=== PATIENT | male | born 1950 | race Caucasian/White ===

== ENCOUNTER 2021-01-18 19:45 | Inpatient (IN) | payer MEDICARE, MEDICAID, SELFPAY ==
[~2021-01-18] VITALS: Ht 160 cm; Wt 68.5 kg
--- NOTE | 2021-01-18 19:50 | NUR ---
PT PUT IN CHAIR A
--- NOTE | 2021-01-18 19:51 | NUR ---
WAITING FOR BED TO BECOME AVAILBALE. PT IS ON A 5150 FOR GD. HOLD PLACED BY LAMAR ROGER
[2021-01-18 19:53] VITALS: BP 143/85
--- NOTE | 2021-01-18 21:02 | NUR ---
PT MOVED TO ER BED 6
--- NOTE | 2021-01-18 21:30 | NUR ---
Dr. Teixeira examining patient.
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
[2021-01-18 22:21] LABS: BASOPHILS # (AUTO) 0.1 K/uL (0.00-0.22); BASOPHILS % (AUTO) 3.9 % (0.0-2.0); EOSINOPHILS # (AUTO) 0.1 K/uL (0-0.4); HEMOGLOBIN 12.7 g/dL (12.0-18.0); LYMPHOCYTES # (AUTO) 0.6 K/uL (2.0-11.5); LYMPHOCYTES % (AUTO) 16.4 % (20.5-51.1); MEAN CORPUSCULAR HEMOGLOBIN 32 pg (27-31); MEAN CORPUSCULAR HGB CONC 34 g/dL (33-37); MEAN CORPUSCULAR VOLUME 95.4 fL (80-94); MONOCYTES # (AUTO) 0.4 K/uL (0.8-1.0); MONOCYTES % (AUTO) 11.9 % (1.7-9.3); NEUTROPHILS # (AUTO) 2.4 K/uL (1.8-7.7); NEUTROPHILS % (AUTO) 64.8 % (42.2-75.2); PLATELET COUNT (AUTO) 115 K/uL (140-450); RED BLOOD CELL COUNT(AUTO) 3.98 MIL/uL (4.20-6.10); RED CELL DISTRIBUTION WIDTH 13.3 % (11.6-13.7); WHITE BLOOD COUNT (AUTO) 3.7 K/uL (4.8-10.8)
[2021-01-18 22:38] LABS: ALBUMIN 3.6 g/dL (3.4-5.0); ANION GAP 11.4 (8-16); ASPARTATE AMINOTRANSFERASE 31 U/L (15-37); CARBON DIOXIDE 27.1 mmol/L (21-32); CHLORIDE 99 mmol/L (98-107); CREATININE 0.9 mg/dL (0.6-1.3); GLUCOSE 90 mg/dL (74-106); POTASSIUM 3.5 mmol/L (3.5-5.1); SODIUM SERUM 134 mmol/L (136-145); TOTAL BILIRUBIN 1.2 mg/dL (0.0-1.0); UREA NITROGEN, BLOOD 15 mg/dL (7-18)
--- NOTE | 2021-01-18 23:00 | NUR ---
SPOKE WITH PATIENT'S SON, ERNIE, AND NOTIFIED HIM THAT PATIENT IS BEING ADMITTED.
[2021-01-19] MEDS ORDERED: NACL 0.9% 1,000 ML IV ONE (01:40)
[2021-01-19 06:30] LABS: APPEARANCE,URINE CLEAR (CLEAR); BILIRUBIN,URINE 1+ (NEGATIVE); BLOOD, URINE NEGATIVE (NEGATIVE); COLOR,URINE YELLOW (YELLOW); LEUKOCYTE ESTERASE ,URINE NEGATIVE (NEGATIVE); NITRITE, URINE NEGATIVE (NEGATIVE); UGLUCOSE NEGATIVE (NEGATIVE)
[2021-01-19 06:42] LABS: BARBITURATE, URINE NEGATIVE ng/ml (NEG <=200); BENZODIAZEPINE, URINE NEGATIVE ng/mL (NEG <=200); CANNABINOID, URINE NEGATIVE ng/mL (NEG <=50); COCAINE, URINE NEGATIVE ng/mL (NEG <=300); OPIATE, URINE NEGATIVE ng/mL (NEG <=2000); PHENCYCLIDINE SCREEN,URINE NEGATIVE ng/mL (NEG <=25)
[2021-01-19 06:54] LABS: RBC,URINE 0-5 /HPF (0-5); WBC,URINE 0-5 /HPF (0-5)
--- NOTE | 2021-01-19 07:10 | NUR ---
Pt report given to DEMARIO MURRIETA. Transfer of care at this time.
--- NOTE | 2021-01-19 07:11 | NUR ---
REceived report from DEMARIO Means, transfered care at this time.
--- NOTE | 2021-01-19 07:23 | NUR ---
Pt A&O X2, calm and cooperative, visible equal rise and fall of chest. VSS, will continue to monitor.
[2021-01-19] MEDS ORDERED: ACETAMINOPHEN 325 MG TAB PO PRN (08:05)
[2021-01-19] MEDS ORDERED: ZOLPIDEM 5 MG TAB PO PRN (08:05)
[2021-01-19] MEDS ORDERED: guaiFENesin DM 200/20 MG-10 ML 10 ML UDC PO PRN (08:05)
[2021-01-19] MEDS ORDERED: ONDANSETRON 4 MG/2 ML VIAL IM/IVP PRN (08:05)
[2021-01-19] MEDS ORDERED: NACL 0.9% 1,000 ML IV SCH (08:05)
[2021-01-19] MEDS ORDERED: HYDROcodone/APAP 7.5/325 MG 1 TAB PO PRN (08:05)
[2021-01-19] MEDS ORDERED: DOCUSATE SODIUM 100 MG GELCAP PO PRN (08:05)
[2021-01-19] MEDS ORDERED: POTASSIUM CHLORIDE 10 MEQ TABER PO PRN (08:05)
--- NOTE | 2021-01-19 08:21 | NUR ---
Pt taken to CT via radriana.
--- NOTE | 2021-01-19 08:26 | NUR ---
Pt brought to ER bed [address] via rney.
--- NOTE | 2021-01-19 08:27 | NUR ---
technical stenographer at pt bedside.
--- NOTE | 2021-01-19 08:30 | NUR ---
Collected MRSA swab, gave to helper animal laboratory.
--- NOTE | 2021-01-19 08:36 | NUR ---
X-Ray at bedside.
[2021-01-19 08:49] LABS: PROTHROMBIN TIME 10.7 secs (10.8-13.4)
[2021-01-19 09:00] LABS: CHOL/HDL RATIO 2.6 (1-4.5); FREE T4 (FREE THYROXINE) 0.76 ng/dL (0.76-1.46); MAGNESIUM 1.9 mg/dL (1.8-2.4); PHOSPHORUS 3.5 mg/dL (2.5-4.9); THYROID STIMULATING HORMONE 2.23 uIU/mL (0.34-3.74)
[2021-01-19] MEDS ORDERED: lisinopriL 10 MG TAB PO SCH (09:00)
[2021-01-19] MEDS ORDERED: PANTOPRAZOLE 40 MG TABEC PO SCH (09:00)
--- NOTE | 2021-01-19 09:01 | NUR ---
Gave report to DEM[facility].
--- NOTE | 2021-01-19 09:13 | NUR ---
Patient will be admitted to care of Marie Wilkinson . Admited to Med Surg. Will go to room 105A. Belongings list completed. Report to DEMARIO Leong.
[2021-01-19 09:30] VITALS: BP 139/70
--- NOTE | 2021-01-19 09:45 | NUR ---
RECEIVED PATIENT FROM ED NURSE LIT. PATIENT IN BED EATING BREAKFAST. ALERT AND ORIENTED TO NAME AND PLACE. RESP EVEN AND UNLABORED ON ROOM AIR. LUNG SOUNDS CLEAR. DENIED OF PAIN AT THIS TIME. ABLE TO MAKE NEEDS KNOWN. MORNING ROUTINE MEDICATIONS GIVEN, PATIENT TOLERATED WELL. WILL USE ASSISTANT PROFESSOR OF SPANISH FOR ADMISSIONS. SAFETY MEASURES IN PLACE. CALL LIGHT WITHIN REACH. WILL CONTINUE TO MONITOR.
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
[2021-01-19] MEDS ORDERED: FLU VACCINE QS2020-21 0.5 ML SYR IMVAC PRN (12:25)
--- NOTE | 2021-01-19 12:52 | NUR ---
PATIENT INSISTED ON LEAVING TO TAKE CARE OF PERSONAL BUSINESS AT HOME. PATIENT REDIRECTED. NO NOTED DISTRESS AT THIS TIME. WILL CONTINUE TO MONITOR.
--- NOTE | 2021-01-19 14:25 | NUR ---
PATIENT BEING VERY DIFFICULT. CONFUSED. LOOKING FOR PERSONAL BELONGINGS THAT AREN'T HERE. MULTIPLE ATTEMPTS TO REDIRECT PATIENT WITHOUT ANY SUCCESS. SECURITY WAS CALLED TO ASSIST. PATIENT WENT BACK TO HIS ROOM. WILL CONTINUE TO MONITOR.
--- NOTE | 2021-01-19 15:16 | NUR ---
PATIENT CAME OUT OF HIS ROOM WANTING TO LEAVE. PT STATED HIS SISTER IS AT THE WINDOW TELLING HIM TO LEAVE. MULTIPLE STAFFS CAME TO ASSIST BUT PATIENT UNABLE TO FOLLOW COMMAND AND PATIENT BECOMING AGITATED. SECURITY WAS CALLED AND PATIENT WAS ASSISTED TO HIS ROOM. DR UMANZOR CONTACTED. AWAITING ORDER
[2021-01-19] MEDS ORDERED: HALOPERIDOL IM 5 MG/ML VIAL IM ONE (15:25)
[2021-01-19] MEDS ORDERED: HALOPERIDOL IM 5 MG/ML VIAL IM SCH (15:54)
--- NOTE | 2021-01-19 15:59 | NUR ---
RECEIVED ORDER FROM DR UMANZOR FOR HALDOL 5 MG IM X1 NOW. ORDER CARRIED OUT.
[2021-01-19 16:00] VITALS: BP 128/68
--- NOTE | 2021-01-19 16:20 | NUR ---
PATIENT HAS BEEN SCREENED AND CATEGORIZED LOW NUTRITION RISK. PATIENT WILL BE SEEN WITHIN 7 DAYS OF ADMISSION. 01/25/[address]
--- NOTE | 2021-01-19 17:36 | NUR ---
PATIENT CONTINUES TO INSIST ON LEAVING. DR WHITESIDE SEEN PATIENT AND DISCONTINUE 5150 HOLD AND OK TO LEAVE. DR UMANZOR MADE AWARE. NO ORDER TO DISCHARGE PATIENT YET, DR UMANZOR WANTED TO TREAT PATIENT FOR POSSIBLE PNA. PATIENT DAUGHTER, CHEYANNE, , SPOKE TO DR UMANZOR AND DECIDED TO SIGN AMA FOR PATIENT TO LEAVE. PATIENT MADE AWARE. ERNIE, SON WILL PICK PATIENT UP.
--- NOTE | 2021-01-19 18:20 | NUR ---
PATIENT LEFT AGAINST MEDICAL ADVICE OF DR UMANZOR. PATIENT LEFT WITH SON ERNIE, WITH ALL PERSONAL BELONGINGS. INSTRUCTIONS GIVEN TO ERNIE TO FOLLOW UP WITH PCP SOON POSSIBLE. ERNIE VERBALIZED UNDERSTANDING.
[2021-01-20 07:08] LABS: T4 (THYROXINE) 4.6 ug/dL (4.5-12.0)
== END 2021-01-19 18:30 | disposition left against medical advice (07) | DRG 640 ==
LOC: EDBD 19:45 → MED 19:45 → MTU 01-19 01:44 → UNDODISIN 01-19 18:25
PROVIDERS: ADMIT Family Medicine; ATTEND Family Medicine
DX: E87.1 Hypo-osmolality and hyponatremia (principal); G93.41 Metabolic encephalopathy; J98.11 Atelectasis; Z20.822 Contact with and (suspected) exposure to COVID-19; Z53.29 Procedure and treatment not carried out because of patient's decision for other reasons; E78.5 Hyperlipidemia, unspecified; E86.0 Dehydration; G31.9 Degenerative disease of nervous system, unspecified; F03.90 Unspecified dementia, unspecified severity, without behavioral disturbance, psychotic disturbance, mood disturbance, and anxiety; Z82.49 Family history of ischemic heart disease and other diseases of the circulatory system
CPT/HCPCS: 36415; 70450; 71045; 80053; 80305; 81001; 82150; 83036; 83690; 83735; 83880; 84100; 84436; 84439; 84443; 84479; 84484; 85025; 85610; 85730; 87081; 99285; G0482; J1630